=== PATIENT | female | born 1960 | race Caucasian/White ===

== ENCOUNTER → 2016-08-06 | Outpatient (CLI) | payer BC ==
[2016-08-06 16:50] LABS: Urine Bilirubin Negative (Negative); Urine Blood Negative /uL (Negative); Urine Color Yellow (Yellow); Urine Glucose Normal (Normal); Urine Ketone Negative (Negative); Urine Nitrite Negative (Negative); Urine Urobilinogen Normal (Negative); Urine pH 6.5 (5.0-8.0)
[2016-08-06 17:03] LABS: Basophils # (auto) 0 uL; Basophils % (auto) 0.7 % (0.0-2.0); CONDITION Y; Eosinophils # (auto) 0 uL; Eosinophils % (auto) 0.7 % (0.0-7.0); Hematocrit 47.4 % (36.0-46.0); Hemoglobin 15.9 g/dL (12.2-16.2); Lymphocytes # (auto) 2.2 uL; Mean Corpuscular Hemoglobin 33.8 pg (28.0-32.0); Mean Corpuscular Hgb Conc. 33.5 g/dL (32.0-36.0); Mean Corpuscular Volume 100.8 fL (80.0-100.0); Mean Platelet Volume 10.1 fL (7.4-10.4); Monocytes # (auto) 0.3 uL; Monocytes % (auto) 5.2 % (0.0-12.0); Neutrophils # (auto) 3.6 uL; Neutrophils % (auto) 58.4 % (37.0-80.0); Platelet Count (auto) 222 10^3/uL (140-450); Red Cell Distribution Width 13.5 % (11.6-16.0); White Blood Cell 6.2 10^3/uL (4.4-10.8)
[2016-08-06 17:12] LABS: Albumin 4.2 g/dL (3.4-5.0); Alkaline Phosphatase 82 U/L (45-117); Anion Gap 7 (5-15); Aspartate Aminotransferase 14 U/L (15-37); BUN/Creatinine Ratio 13.2; Bilirubin, Direct < 0.1 mg/dL (0-0.2); Bilirubin, Total 0.4 mg/dL (0.2-1.0); Blood Urea Nitrogen 18 mg/dL (7-18); Calcium 8.7 mg/dL (8.5-10.1); Carbon Dioxide 25 mmol/L (21-32); Chloride 107 mmol/L (98-107); Cholesterol 278 mg/dL (< 200); GFR African American 52 mL/min; GFR Non-African American 43 mL/min; Glucose 81 mg/dL (74-106); HDL Cholesterol 99 mg/dL (40-59); LDL Cholesterol 159 mg/dL (< 100); Potassium 3.8 mmol/L (3.5-5.1); Sodium 139 mmol/L (136-145); Total Protein 7.8 g/dL (6.4-8.2); Triglycerides 131 mg/dL (< 150)
== END | disposition home or self-care (01) ==
LOC: LAB 12:16
PROVIDERS: ATTEND Internal Medicine Cardiovascular Disease
DX: E78.00 Pure hypercholesterolemia, unspecified (principal); I10 Essential (primary) hypertension; E11.9 Type 2 diabetes mellitus without complications; E03.9 Hypothyroidism, unspecified; D64.9 Anemia, unspecified; N95.9 Unspecified menopausal and perimenopausal disorder; N39.0 Urinary tract infection, site not specified
CPT/HCPCS: 36415; 80048; 80061; 80076; 81003; 82672; 83001; 83002; 83036; 84443; 85025

== ENCOUNTER → 2016-11-12 | Outpatient (CLI) | payer BC ==
[2016-11-12 12:32] LABS: Albumin 3.5 g/dL (3.4-5.0); Bilirubin, Direct 0.1 mg/dL (0-0.2); Bilirubin, Total 0.3 mg/dL (0.2-1.0); Total Protein 6.9 g/dL (6.4-8.2)
== END | disposition home or self-care (01) ==
LOC: LAB 08:03
PROVIDERS: ATTEND Internal Medicine Cardiovascular Disease
DX: E78.00 Pure hypercholesterolemia, unspecified (principal); K74.1 Hepatic sclerosis
CPT/HCPCS: 36415; 80061; 80076

== ENCOUNTER → 2016-11-20 | Outpatient (CLI) | payer BC | END | disposition home or self-care (01) | LOC: Rad HDHVI 09:32 | PROVIDERS: ATTEND Internal Medicine Cardiovascular Disease | DX: R07.9 Chest pain, unspecified (principal) | CPT/HCPCS: 71020 ==

== ENCOUNTER → 2017-06-23 | Outpatient (CLI) | payer BC ==
[~2017-06-23] VITALS: Ht 160 cm; Wt 79.4 kg
[~2017-06-23] MED LIST: ADENOSINE 67 MG in GIVE UN-DILUTED 0 ML IV ONE; ADENOSINE 90 MG/30 ML INJ IV ONE
[2017-06-23 12:19] LABS: Urine Blood Negative /uL (Negative); Urine Specific Gravity 1.008 (1.001-1.035)
[2017-06-23 12:20] LABS: Basophils # (auto) 0.1 uL; Eosinophils # (auto) 0 uL; Lymphocytes # (auto) 1.9 uL; White Blood Cell 5.8 10^3/uL (4.4-10.8)
[2017-06-23 12:24] LABS: Basophils % (auto) 1.1 % (0.0-2.0); Eosinophils % (auto) 0.5 % (0.0-7.0); Hemoglobin 14.7 g/dL (12.2-16.2); Lymphocytes % (auto) 32.4 % (10.0-50.0); Mean Corpuscular Hemoglobin 34.8 pg (28.0-32.0); Mean Corpuscular Hgb Conc. 34.1 g/dL (32.0-36.0); Mean Corpuscular Volume 102.2 fL (80.0-100.0); Monocytes # (auto) 0.4 uL; Monocytes % (auto) 6.3 % (0.0-12.0); Neutrophils # (auto) 3.4 uL; Neutrophils % (auto) 59.7 % (37.0-80.0); Platelet Count (auto) 152 10^3/uL (140-450); Red Cell Distribution Width 13.3 % (11.8-14.3)
[2017-06-23 12:25] LABS: Albumin 3.8 g/dL (3.4-5.0); BUN/Creatinine Ratio 14.9; Bilirubin, Total 0.2 mg/dL (0.2-1.0); Calcium 8.9 mg/dL (8.5-10.1); Potassium 3.4 mmol/L (3.5-5.1); Total Protein 7.1 g/dL (6.4-8.2)
[2017-06-23 12:32] LABS: Free T4 (Free Thyroxine) 1.17 ng/dL (0.89-1.76)
== END | disposition home or self-care (01) ==
LOC: Rad HDHVI 08:22
PROVIDERS: ATTEND Internal Medicine Cardiovascular Disease
DX: I35.8 Other nonrheumatic aortic valve disorders (principal); J44.9 Chronic obstructive pulmonary disease, unspecified; E78.5 Hyperlipidemia, unspecified; D64.9 Anemia, unspecified; I10 Essential (primary) hypertension; E11.9 Type 2 diabetes mellitus without complications; E03.9 Hypothyroidism, unspecified; E55.9 Vitamin D deficiency, unspecified; D51.9 Vitamin B12 deficiency anemia, unspecified; N39.0 Urinary tract infection, site not specified; R07.9 Chest pain, unspecified
CPT/HCPCS: 36415; 78452; 80053; 80061; 81003; 82306; 82607; 83036; 84439; 84443; 85025; 93005; 93306; 96374; 96375; A9500; J0153

== ENCOUNTER → 2018-02-05 | Outpatient (CLI) | payer BC ==
[~2018-02-05] MED LIST changes: -ADENOSINE 67 MG in GIVE UN-DILUTED 0 ML IV ONE; -ADENOSINE 90 MG/30 ML INJ IV ONE; +SILVER SULFADIAZINE 1 % TOPICAL CREAM 50GM TOP ONE
[2018-02-05 11:36] VITALS: BP 132/84
[2018-02-05 12:00] VITALS: BP 124/80
== END | disposition home or self-care (01) ==
LOC: CHF HDHVI 11:43
PROVIDERS: ATTEND Internal Medicine Cardiovascular Disease
DX: T21.24XA Burn of second degree of lower back, initial encounter (principal)
CPT/HCPCS: G0463

== ENCOUNTER → 2018-02-08 | Outpatient (CLI) | payer BC ==
[~2018-02-08] VITALS: Ht 30.5 cm; Wt 0.5 kg
[2018-02-08 10:00] VITALS: BP 123/78
[2018-02-08 10:30] VITALS: BP 128/80
== END | disposition home or self-care (01) ==
LOC: CHF HDHVI 09:50
PROVIDERS: ATTEND Internal Medicine Cardiovascular Disease
DX: I10 Essential (primary) hypertension (principal)
CPT/HCPCS: G0463